=== PATIENT | male | born 1970 | race Asian ===

== ENCOUNTER 2016-12-31 15:52 | Emergency (ER) | payer BC ==
[~2016-12-31] VITALS: Ht 172.7 cm; Wt 81.6 kg
[2016-12-31] MEDS ORDERED: ASPIR 8181 MG ORAL (16:03)
[2016-12-31] MEDS ORDERED: METFORMIN HCL500 M1 ORAL (16:03)
[2016-12-31 16:07] VITALS: BP 164/105
--- NOTE | 2016-12-31 16:21 | Emergency Room Report ---
History of Present Illness General Chief Complaint: Seizure Source: Patient, EMS Present Illness HPI Patient is a 46-year-old male who presented by ambulance after a witnessed seizure. 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 Patient had residual weakness from CVA to his right lower extremity as well as to his left leg sensation. The patient is not currently taking medications. Patient prior history of high blood pressure patient is unclear of his medications. Patient not currently taking seizure medications Allergies: Coded Allergies: No Known Allergies (Unverified , 12/31/16) Patient History Reviewed Nursing Documentation: PMH: Agreed, PSxH: Agreed Nursing Documentation-PM Past Medical History: No History, Except For Hx Hypertension: Yes Hx Diabetes: Yes Hx Cerebrovascular Accident: Yes Hx Seizures: Yes Review of Systems All Other Systems: negative except mentioned in HPI Physical Exam Vital Signs Date Time Temp Pulse Resp B/P Pulse Ox O2 Delivery O2 Flow Rate FiO2 12/31/16 15:57 97.9 76 14 164/105 96 Room Air Sp02 EP Interpretation: reviewed, normal General Appearance: normal inspection, well appearing, no apparent distress, alert Head: atraumatic ENT: normal ENT inspection, hearing grossly normal, normal voice Neck: normal inspection, full range of motion, supple, no bony tend Respiratory: normal inspection, lungs clear, normal breath sounds, no respiratory distress, no retraction, no wheezing Cardiovascular #1: regular rate, rhythm, no edema Gastrointestinal: normal inspection, normal bowel sounds, non tender, soft, no guarding, no hernia Genitourinary: no CVA tenderness Musculoskeletal: normal inspection, back normal, normal range of motion Neurologic: normal inspection, alert, responsive, 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 Differential diagnosis included cysticercosis, electrolyte abnormality, mass lesion, or cranial hemorrhage. Because of complexity of patient's case laboratory testing and imaging studies were ordered. The patient was noted to be moderately hypertensive. Patient was given clonidine and IV keppra. CT imaging of the head read by radiologist showed evidence of acute hemorrhage. Patient was noted to be hypertensive and had improvement in his blood pressure after clonidine.The patient was noted to have a return to his baseline mental status. The patient was able to move all extremities however he was slightly to his right lower extremity.The nasal bridge abrasion did not require suturing. Bilateral sub- frontal. There is some intraparenchymal hemorrhage. The patient was noted to be awake alert and oriented. Neurointensivist at [facility] was contacted for higher-level care transfer for further management .The patient was accepted by [facility]. The physician requested that we give an additional 500 mg of Keppra. At the time transfer patient was awake alert and oriented. Labs Test 12/31/16 16:30 White Blood Count 7.6 K/UL (4.8-10.8) Red Blood Count 5.45 M/UL (4.70-6.10) Hemoglobin 15.1 G/DL (14.2-18.0) Hematocrit 46.0 % (42.0-52.0) Mean Corpuscular Volume 84 FL (80-99) Mean Corpuscular Hemoglobin 27.8 PG (27.0-31.0) Mean Corpuscular Hemoglobin Concent 32.9 G/DL (32.0-36.0) Red Cell Distribution Width 12.1 % (11.6-14.8) Platelet Count 237 K/UL (150-450) Mean Platelet Volume 8.9 FL (6.5-10.1) Neutrophils (%) (Auto) 64.8 % (45.0-75.0) Lymphocytes (%) (Auto) 22.9 % (20.0-45.0) Monocytes (%) (Auto) 7.6 % (1.0-10.0) Eosinophils (%) (Auto) 4.0 % (0.0-3.0) Basophils (%) (Auto) 0.6 % (0.0-2.0) Sodium Level 140 mEQ/L (135-145) Potassium Level 3.6 mEQ/L (3.4-4.9) Chloride Level 98 mEQ/L (98-107) Carbon Dioxide Level 28 mEQ/L (20-30) Anion Gap 14 (5-15) Blood Urea Nitrogen 11 mg/dL (7-23) Creatinine 0.9 mg/dL (0.7-1.2) Estimat Glomerular Filtration Rate > 60 mL/min (>60) Glucose Level 216 mg/dL (74-106) Calcium Level 9.4 mg/dL (8.6-10.2) Total Bilirubin 0.3 mg/dL (0.0-1.2) Aspartate Amino Transf (AST/SGOT) 36 U/L (5-40) Alanine Aminotransferase (ALT/SGPT) 55 U/L (3-41) Alkaline Phosphatase 95 U/L (40-129) Total Protein 7.9 g/dL (6.6-8.7) Albumin 4.9 g/dL (3.5-5.2) Globulin 3.0 g/dL Albumin/Globulin Ratio 1.6 (1.0-2.7) EKG Diagnostic Results Rate: normal - 71 Rhythm: NSR ST Segments: no acute changes Rhythm Strip Diag. Results EP Interpretation: yes Rhythm: NSR, no PVC's, no ectopy Chest X-Ray Diagnostic Results EP Interpretation: Yes Findings: no consolidation, no effusion, no pneumothorax, no acute cardiopulmonary disease Number of Views: 1 Last Vital Signs Date Time Temp Pulse Resp B/P Pulse Ox O2 Delivery O2 Flow Rate FiO2 12/31/16 16:07 97.9 80 14 164/105 96 Room Air Status: unchanged Disposition: [facility] Condition: Critical Edgar Harvey Dec 31, 2016 16:21
[2016-12-31] MEDS ORDERED: levETIRAcetam 500 MG in D5W 110 ML IVPB ONE ×2 (16:30→17:45)
[2016-12-31] MEDS ORDERED: levETIRAcetam 500mg vial IV ONE ×2 (16:35→17:41)
[2016-12-31 16:48] LABS: BASOPHILS % (AUTO) 0.6 % (0.0-2.0); LYMPHOCYTES % (AUTO) 22.9 % (20.0-45.0); MEAN CORPUSCULAR HEMOGLOBIN 27.8 PG (27.0-31.0); MEAN CORPUSCULAR HGB CONC 32.9 G/DL (32.0-36.0); MEAN CORPUSCULAR VOLUME 84 FL (80-99); MEAN PLATELET VOLUME 8.9 FL (6.5-10.1); MONOCYTES % (AUTO) 7.6 % (1.0-10.0); NEUTROPHILS % (AUTO) 64.8 % (45.0-75.0); PLATELET COUNT 237 K/UL (150-450); RED BLOOD COUNT 5.45 M/UL (4.70-6.10); RED CELL DISTRIBUTION WIDTH 12.1 % (11.6-14.8); WHITE BLOOD COUNT 7.6 K/UL (4.8-10.8)
[2016-12-31 17:08] LABS: ALANINE AMINOTRANSFERASE 55 U/L (3-41); ALBUMIN/GLOBULIN RATIO 1.6 (1.0-2.7); ANION GAP 14 (5-15); ASPARTATE AMINO TRANSFERASE 36 U/L (5-40); CALCIUM 9.4 mg/dL (8.6-10.2); CARBON DIOXIDE 28 mEQ/L (20-30); CHLORIDE 98 mEQ/L (98-107); CREATININE 0.9 mg/dL (0.7-1.2); GLOMERULAR FILTRATION RATE > 60 mL/min (>60); HEMOLYSIS 9; POTASSIUM 3.6 mEQ/L (3.4-4.9); SODIUM 140 mEQ/L (135-145); TOTAL PROTEIN 7.9 g/dL (6.6-8.7)
[2016-12-31 17:20] LABS: INR 0.9 (0.9-1.1); PROTHROMBIN TIME 9.2 SEC (9.30-11.50)
[2016-12-31] MEDS ORDERED: Enalaprilat 2.5mg/2ml Inj IV ONE (17:30)
[2016-12-31 19:54] VITALS: BP 153/97
--- NOTE | 2017-01-01 09:03 | Diagnostic Imaging Report ---
Indications: Seizures Technique: Spiral acquisitions obtained through the brain. Angled axial and coronal 5 x 5 mm slices were reconstructed. Total dose length product 1544 mGycm. CTDI vol(s) 7 mGy Comparison: None Findings: Extensive subarachnoid hemorrhage is seen within the left parietal sulci, right anterior temporal sulci and bilateral frontal sulci. Extra-axial subdural blood measuring up 9 mm thick is seen in the floor of the left anterior fossa. 5 mm thick subdural hematoma is seen in the floor of the right anterior fossa. Subdural blood is seen tracking along the anterior falx. There is a small focus of hemorrhage which may be intraparenchymal versus focal subarachnoid in the right parasagittal frontal lobe. This measures 8 mm in thickness. Some blood is also seen within the atrium of the left lateral ventricle There is an area of cystic encephalomalacia involving the left occipital lobe. This results in some ex vacuo dilatation of the atrium of the of lateral ventricle. Normal size ventricles and extra-axial CSF spaces otherwise Intact calvarium. Visualized orbits sinuses are unremarkable. Impression: Bilateral inferior frontal and anterior parafalcine subdural hematomas Extensive bilateral subarachnoid hemorrhage 8mm diameter focal hematoma in the right parasagittal frontal region. Uncertain as to whether this is a focal sub-arachnoid hemorrhage or is a small parenchymal hemorrhage Focus of intraventricular hemorrhage within the atrium of the left lateral ventricle Chronic encephalomalacia of the left occipital lobe This agrees with the preliminary interpretation provided overnight by Dr. Oleary Critical value findings were phoned to Dr. Harvey by Dr. Oleary on 12/31/[address] scanner at [facility] is accredited by the [employer] and the scans are performed using protocols designed to limit radiation exposure to as low as reasonably achievable to attain images of sufficient resolution adequate for diagnostic evaluation.
--- NOTE | 2017-01-02 20:22 | Cardiology Report ---
APPROVED REPORT EKG Measurement Heart [id number] Normal sinus rhythm Cannot rule out Anterior infarct, age undetermined Abnormal ECG
== END 2016-12-31 19:59 | disposition short-term general hospital (02) ==
LOC: EDBD 15:52 → EMR 16:38
DX: I62.01 Nontraumatic acute subdural hemorrhage (principal); I60.6 Nontraumatic subarachnoid hemorrhage from other intracranial arteries; R56.9 Unspecified convulsions; G81.91 Hemiplegia, unspecified affecting right dominant side; I10 Essential (primary) hypertension; E11.9 Type 2 diabetes mellitus without complications; G93.89 Other specified disorders of brain
CPT/HCPCS: 36415; 70450; 80053; 82962; 85025; 85610; 85730; 93005; 96374; 96375; 99285; J1953